=== PATIENT | female | born 1970 | race Caucasian/White ===

== ENCOUNTER 2018-12-14 23:57 | Emergency (ER) | payer SELFPAY ==
[2018-12-14 23:58] VITALS: BP 147/75; PULSE 98; RESP 16; TEMP 36.6; O2SAT 99; BMI 26.4
[2018-12-15] MEDS: SUMAtriptan 6 MG/0.5 ML Vial SC (00:59)
--- NOTE | 2018-12-15 01:03 | ED.DCSUM_ITS ---
- ER Visit Summary Date of Service: 12/15/18 Chief Complaint: Migraine History of Present Illness: The patient is a 48 F with a migraine that started yesterday. Pain is in her frontal head. Worse with light. No improvement with ibuprofen. No other associated symptoms. Patient normally takes Imitrex, but is out. No traumas. No fevers. No other new or different symptoms. Physical Examination: Afebrile and vital signs unremarkable. Patient sitting with her eyes closed and covered. HEENT exam unremarkable. Cranial nerves intact. Heart regular. Skin appears normal. Normal strength and sensation. Test Results: None indicated. Emergency Department Course and Treatment: Patient treated with Imitrex. Will be discharged if improved. Patient had no improvement and was treated with Compazine, Benadryl, and Toradol. On reevaluation, the patient is improved. She will be discharged to follow-up with her doctor. Treatment Plan: As above Disposition: Discharge Impression: 1. Acute headache This note was generated with [employer] dictation software. It may contain incorrect words, spelling, and punctuation that were not noted in review of the chart prior to signing ED Disposition - Plan for ED Patient: Instructions: ED Headache Migraine Referrals: Karmen Sotelo [Primary Care Provider] -
[2018-12-15] MEDS: 0.9% Normal Saline 1,000 ML 999 ML IV (01:52)
[2018-12-15] MEDS: DiphenhydrAMINE 50 MG/ML Syringe 25 MG IV (01:52)
[2018-12-15] MEDS: proCHLORPERazine 10 MG/2 ML Vial IV (01:53)
[2018-12-15] MEDS: Ketorolac 30 MG/ML Syringe IV (01:54)
[2018-12-15 02:23] VITALS: BP 130/75; PULSE 86; RESP 16; O2SAT 100
[2018-12-15 02:48] VITALS: BP 111/73; PULSE 75; RESP 16; O2SAT 100
== END 2018-12-15 02:50 | disposition home or self-care (01) ==
PROVIDERS: Emergency Provider Emergency Medicine; Family Provider Family Medicine; PCP Family Medicine
DX: G43.909 Migraine, unspecified, not intractable, without status migrainosus (principal); Z72.0 Tobacco use
CPT/HCPCS: 96361; 96372; 96374; 96375; 99283; J7030; A4216; J3030

== ENCOUNTER 2023-03-17 10:17 | Emergency (ER) | payer OTHER, SELFPAY ==
[2023-03-17 10:19] VITALS: PULSE 100; RESP 18; TEMP 36.7; O2SAT 94
[2023-03-17 10:24] VITALS: BP 114/60; BMI 26.2
--- NOTE | 2023-03-17 10:43 | EDS_ITS ---
HPI History of Present Illness Chief Complaint: Upper Extremity Injury Detail of Chief Complaint: Injury left ring finger and hand Informant: patient Occured/Mechanism Mechanism/Context: Yes injury and Yes work related Onset/Context/Timing Onset: Hours Context: Sudden Onset Timing: Continuous Quality of Pain: Dull and Aching Location: Left upper extremity Current Severity: Mild Maximum Severity: Moderate Worsened by: Palpation Relieved by: Nothing Associated Symptoms Associated Symptoms: Positive for Parasthesia and Loss of Funtion Narrative Narrative: Patient is a 53-year-old [id number] woman who presents with injury to her left ring finger. Injection site is proximal to the PIP joint. Area was injected. There was no liquid. She states she has no sensation or left ring finger. The left ring finger is pale. She is unable to flex at the PIP joint. She does not know when her last tetanus shot was. She had something to drink at 9 AM. She is not allergic to antibiotics. Tetanus Immunization: Unknown Prior similar symptoms: No Recent Illness/Hospitalization: No PFSH PFSH Medical History no medical history no medical history Home Medications sumatriptan succinate 6 mg/0.5 mL subcutaneous solution 6 mg subcut .X1 PRN MIGRAINE 12/15/18 [History Last Taken Unknown] Allergy/AdvReac Type Severity Reaction Status Date / Time No Known Allergies Allergy Verified 04/16/19 14:45 Social History (Updated 03/17/23 @ 10:[address] Mario Catalan MD) Smoking Status: Current every day smoker tobacco type: cigarettes substance use type: does not use ROS ROS ED Constitutional Constitutional ED: Denies chills, fever(s), subjective, sweats or weight loss Cardiovascular Cardiovascular: Denies chest pain or palpitations Respiratory/Chest Respiratory/Chest: Denies cough or dyspnea Neurologic Neurologic: Reports paresthesias; Denies headache(s) or weakness Psychiatric Psychiatric: Reports anxiety; Denies depression Hematologic/Lymphatic Hematologic/Lymphatic: Denies easy bleeding or easy bruising EXAM Physical Exam Const Vital Signs: 03/17/23 10:19 03/17/23 10:24 Temperature 98.1 F Temperature Source Oral Pulse Rate 100 Respiratory Rate 18 Blood Pressure 114/60 Blood Pressure Mean 78 Pulse Ox 94 Positive well nourished and well developed Constitutional Narrative: Patient appears slightly uncomfortable. General Appearance ED: well developed HEENT Reports moist mucous membranes normocephalic and atraumatic Eyes PERRL and EOMs intact bilaterally Neck full ROM and supple Chest Wall inspection of chest normal and palpation of chest normal Resp normal respiratory effort and clear to auscultation bilaterally Cardio regular rate, regular rhythm, S1 normal heart sound, S2 normal heart sound and no murmurs Extremity Negative for normal to inspection Extremity Narrative: Patient's left ring finger is swollen and pale distal the PIP joint. Injection site is noted on the dorsal surface proximal to PIP joint. Patient to flex or extend at the DIP joint. She has no sensation distal to the injection site. The digit is pale with no capillary refill. There is subcutaneous air noted hand and forearm up to the elbow. General Extremety ED: Yes edema General Extremity: edema Neuro oriented x3, CN's II-XII intact bilaterally and No moves all extremities Sensorium / Orientation: alert Psych mental status grossly normal Skin Skin Narrative: Injection site dorsum of the left ring finger. Crepitus due to subcutaneous air with an MDM MDM MDM Narrative Medical decision making narrative: X-rays obtained because patient raise concern about possible metal being injected accidentally. She states the she was using 8 to vice that only injects air. It is used to move parts down the line. Patient has an ischemic finger. We will transfer to hand service. [facility] has been paged. Patient received 1 g of Ancef. Tetanus was updated. Images of the hand and forearm were obtained. Patient was made NPO. History & Record Review Discussion w/independent historian: Patient Radiography Chest X-Ray - ED: Read by ED Physician (2 view x-ray of the hand, forearm, arm were obtained and there is subcutaneous air involving all digits, hand, forearm, arm and traverse up to the trapezius/neck region.) Management Discussion w/another healthcare provider: Director Of Religious Activities ([facility] hand surgeon Sherwin Zhu. He requested ER to ER transfer. Spoke with Caity the nurse at the transfer line for [facility]. She will contact the ER physician. Arrangements for stat transport has been made.) Critical Care Time Critical Care Time: Yes Critical care time (excluding procedures): 30-74 minutes (31), Including time spent: (History, physical, interpretation laboratory results, discussion with hand surgeon, discussion with transfer line), Discussing w/Patient &/or Family/Market Superintendent, Discussing w/Consultants, Arranging Admission or Transfer and Performing Direct Patient Care at Bedside Discharge Plan Triage Chief Complaint: Upper Extremity Injury ED Provider: Mario Catalan Dx/Rx/DC Orders Clinical Impression: Traumatic compartment syndrome of upper extremity Prescriptions: No Action sumatriptan succinate 6 MG/0.5 ML solution 6 mg subcut .X1 PRN Primary Care Provider: Care Physician,No Primary Referrals: Karmen Sotelo MD [Non-Staff] - Disposition Disposition: Acute Care Hospital
--- NOTE | 2023-03-17 10:47 | ED.RN ---
[facility]. HOWEVER, PER DR CERVANTES PT. WILL NEED TO URGENTLY TRANSFER OUT OF FACILITY IN ORDER TO PRESERVE FINGER FUNCTION.CHECKING OF ETA OF TRANSPORT RIGHT NOW- WILL CALL BACK VIDAL AND LET HER KNOW SHE IS CURRENTLY IN [place]. UNSURE IF SHE WILL MAKE IT BEFORE TRANSPORT.
--- NOTE | 2023-03-17 10:50 | RAD_ITS ---
STUDY: X-RAY - LEFT HUMERUS REASON FOR EXAM: Female, 53 years old. Injury/Pain TECHNIQUE: 2 view(s) of the humerus. COMPARISON: None. FINDINGS: Normal visualized humerus. There is no demonstrated fracture or osseous destructive process. Large amount of air is seen within the subcutaneous tissues as well as the muscle planes. RAD/Humerus min 2 Views IMPRESSION: Large amount of air is seen in within the subcutaneous tissues as well as the muscle planes. Electronically Signed: Gagan Jin MD at 11:07 EDT ,
--- NOTE | 2023-03-17 10:50 | RAD_ITS ---
STUDY: X-RAY - LEFT HAND REASON FOR EXAM: Female, 53 years old. Traumatic injury. TECHNIQUE: 3 view(s) of the hand. COMPARISON: None. FINDINGS: Normal radiocarpal articulation. Normal distal radioulnar joint. Normal visualized carpal bones. Normal carpal articulations Normal carpometacarpal articulation of the thumb. Normal second through fifth carpometacarpal joints. Normal metacarpi. Normal metacarpophalangeal joint of the thumb. Normal interphalangeal joint of the thumb. Normal proximal and distal phalanges of the thumb. Normal metacarpophalangeal joints of the second through fifth fingers. Normal proximal and distal interphalangeal joints of the second through fifth fingers. Normal phalanges of the second through fifth fingers. Air is seen within the soft tissues of the wrist and hand. RAD/Hand Min 3 Views IMPRESSION: Diffuse subcutaneous air. No bony abnormality is seen. Electronically Signed: Gagan Jin MD at 11:07 EDT ,
--- NOTE | 2023-03-17 10:53 | RAD_ITS ---
STUDY: X-RAY - LEFT RADIUS AND ULNA REASON FOR EXAM: Female, 53 years old. Pneumatic injury. TECHNIQUE: 2 view(s) of the forearm. COMPARISON: None. FINDINGS: There is evidence of large amount of air in the subcutaneous fat as well as in the muscular planes. Normal visualized radius. Normal visualized ulna. RAD/Forearm 2 Views IMPRESSION: Large amount of air in the subcutaneous fat as well as in the muscular planes. The bony structures are unremarkable. Electronically Signed: Gagan Jin MD at 11:06 EDT ,
[2023-03-17] MEDS: Diphth,Pertuss(Acell),Tet Vac 0.5 ML Vial IM (11:06)
[2023-03-17] MEDS: Ondansetron 4 MG/2 ML Vial IV (11:08)
[2023-03-17] MEDS: Morphine 4 MG/ML Syringe IV (11:08)
[2023-03-17] MEDS: 0.9% Normal Saline 1,000 ML 150 ML IV (11:10)
[2023-03-17] MEDS: Cefazolin 1 GM/50 ML BAG IV (11:13)
--- NOTE | 2023-03-17 11:16 | ED.RN ---
[facility] NOTIFIED [facility] PT. TRANSPORT WILL BE HERE IN THE NEXT COUPLE OF MINUTES AND THAT SHE WOULD LIKELY NOT MAKE IT IN TIME
[2023-03-17 11:22] LABS: Anion Gap 6 (5-15); BUN 14 mg/dL (7-18); Chloride 106 mmol/L (98-107); Creatinine, Serum 0.74 mg/dL (0.55-1.02); EST Glomerular Filtration Rate 88 mL/min (>60); Est Glom Filt Rate - Afr Amer 107 mL/min (>60); Glucose 94 mg/dL (74-106); Potassium 3.7 mmol/L (3.5-5.1); Sodium Level 140 mmol/L (136-145)
--- NOTE | 2023-03-17 11:42 | NURSING ---
CALLED [facility], ETA IS 3 MIN
== END 2023-03-17 12:13 | disposition short-term general hospital (02) ==
PROVIDERS: Emergency Provider Emergency Medicine; Visit Provider Emergency Medicine
DX: T79.A12A Traumatic compartment syndrome of left upper extremity, initial encounter (principal); F17.210 Nicotine dependence, cigarettes, uncomplicated; Z23 Encounter for immunization; X58.XXXA Exposure to other specified factors, initial encounter
CPT/HCPCS: 73060; 73090; 73130; 80048; 90715; 96365; 96375; 99285; J7030; A4216; J2405